=== PATIENT | female | born 1965 | race Caucasian/White ===

== ENCOUNTER 2019-03-15 10:53 | Emergency (ER) | payer OTHER ==
[~2019-03-15] VITALS: Ht 165.1 cm; Wt 78.5 kg
[2019-03-15 11:05] VITALS: Ht 165.1 cm; Wt 78.5 kg
[2019-03-15 12:20] VITALS: BP 141/75
== END 2019-03-15 12:31 | disposition home or self-care (01) ==
LOC: ED 10:53
DX: N39.0 Urinary tract infection, site not specified (principal); E11.9 Type 2 diabetes mellitus without complications; E78.00 Pure hypercholesterolemia, unspecified
CPT/HCPCS: J0696

== ENCOUNTER 2020-07-23 03:37 | Inpatient (IN) | payer OTHER ==
[~2020-07-23] VITALS: Ht 165.1 cm; Wt 91.2 kg
[2020-07-23 04:58] LABS: BASOPHIL % 0.9 % (0.2-1.3); PLATELET COUNT 209 x10^3mcL (179-408); RED CELL DISTRIBUTION WIDTH 12.6 % (12.3-17.7)
[2020-07-23 05:03] LABS: rbc morphology (normal/abnorm) ABNORMAL (NORMAL)
[2020-07-23 05:40] LABS: ALKALINE PHOSPHATASE 57 U/L (46-116); ALT/SGPT 28 U/L (14-59); AST/SGOT 37 U/L (15-37); CARBON DIOXIDE 15.3 mmol/L (21-32); CHLORIDE SERUM 100 mmol/L (98-107); CREATININE SERUM 2.3 mg/dL (0.6-1.0); GFR1 23 mL/min; MAGNESIUM 1.8 mg/dL (1.8-2.4); POTASSIUM SERUM 4.6 mmol/L (3.5-5.1); SODIUM SERUM 136 mmol/L (136-145); TOTAL PROTEIN, SERUM 6.5 g/dL (6.4-8.2)
[2020-07-23 05:41] LABS: ALBUMIN 2.3 g/dL (3.4-5.0)
[2020-07-23 05:44] LABS: CK-MB 4.3 ng/mL (0-3.6)
[2020-07-23 05:54] LABS: GLUCOSE SERUM 486 mg/dL (74-106)
[2020-07-23 07:48] VITALS: Ht 165.1 cm; Wt 91.2 kg
[2020-07-23 15:25] LABS: UA SPECIFIC GRAVITY 1.015 (1.005-1.035); microscopic required? YES; urine erythrocyte 3+ (NEGATIVE)
[2020-07-23 16:53] LABS: BASOPHIL % 0.2 % (0.2-1.3); PLATELET COUNT 241 x10^3mcL (179-408); RED CELL DISTRIBUTION WIDTH 13.1 % (12.3-17.7)
[2020-07-23 17:45] LABS: rbc morphology (normal/abnorm) NORMAL (NORMAL)
[2020-07-24 04:04] LABS: RED CELL DISTRIBUTION WIDTH 12.7 % (12.3-17.7)
[2020-07-24 04:06] LABS: BASOPHIL % 0.2 % (0.2-1.3); PLATELET COUNT 287 x10^3mcL (179-408)
[2020-07-24 04:07] LABS: rbc morphology (normal/abnorm) NORMAL (NORMAL)
[2020-07-24 04:42] LABS: ALBUMIN 2.7 g/dL (3.4-5.0); BILIRUBIN TOTAL 0.62 mg/dL (0.20-1.00); CALCIUM 9.3 mg/dL (8.5-10.1); CARBON DIOXIDE 21.6 mmol/L (21-32); CHOLESTEROL/HDL RATIO 7.8; CREATININE SERUM 1.8 mg/dL (0.6-1.0); MAGNESIUM 1.5 mg/dL (1.8-2.4); POTASSIUM SERUM 3.2 mmol/L (3.5-5.1); TOTAL PROTEIN, SERUM 6.9 g/dL (6.4-8.2)
[2020-07-25 08:41] LABS: BASOPHIL % 0.5 % (0.2-1.3); PLATELET COUNT 271 x10^3mcL (179-408); RED CELL DISTRIBUTION WIDTH 12.8 % (12.3-17.7)
[2020-07-25 09:35] LABS: BILIRUBIN TOTAL 0.7 mg/dL (0.20-1.00); CALCIUM 8.7 mg/dL (8.5-10.1); CARBON DIOXIDE 26.8 mmol/L (21-32); CREATININE SERUM 1.6 mg/dL (0.6-1.0); MAGNESIUM 1.5 mg/dL (1.8-2.4); POTASSIUM SERUM 3.5 mmol/L (3.5-5.1); TOTAL PROTEIN, SERUM 6.3 g/dL (6.4-8.2)
[2020-07-25 10:00] LABS: ALBUMIN 2.1 g/dL (3.4-5.0)
[2020-07-25 15:18] LABS: rbc morphology (normal/abnorm) NORMAL (NORMAL)
[2020-07-25 23:22] VITALS: BP 150/63
[2020-07-26 05:40] VITALS: BP 135/84
[2020-07-26 09:41] VITALS: BP 137/61
[2020-07-26 12:59] VITALS: BP 128/50
[2020-07-26 13:12] LABS: BILIRUBIN TOTAL 0.68 mg/dL (0.20-1.00); CALCIUM 8.5 mg/dL (8.5-10.1); CREATININE SERUM 1.2 mg/dL (0.6-1.0); MAGNESIUM 1.5 mg/dL (1.8-2.4); POTASSIUM SERUM 3.2 mmol/L (3.5-5.1)
[2020-07-26 13:15] LABS: ALBUMIN 1.9 g/dL (3.4-5.0); TOTAL PROTEIN, SERUM 6.1 g/dL (6.4-8.2)
[2020-07-26 13:22] LABS: BASOPHIL % 0.4 % (0.2-1.3); PLATELET COUNT 236 x10^3mcL (179-408); RED CELL DISTRIBUTION WIDTH 12.5 % (12.3-17.7)
[2020-07-26 14:25] LABS: rbc morphology (normal/abnorm) NORMAL (NORMAL)
[2020-07-26 17:30] VITALS: BP 164/68
[2020-07-26 22:32] VITALS: BP 151/64
[2020-07-27 04:24] LABS: BILIRUBIN TOTAL 0.55 mg/dL (0.20-1.00); CALCIUM 8.3 mg/dL (8.5-10.1); CREATININE SERUM 1.2 mg/dL (0.6-1.0); MAGNESIUM 1.7 mg/dL (1.8-2.4)
[2020-07-27 04:31] LABS: ALBUMIN 1.8 g/dL (3.4-5.0); TOTAL PROTEIN, SERUM 5.9 g/dL (6.4-8.2)
[2020-07-27 04:32] LABS: POTASSIUM SERUM 2.8 mmol/L (3.5-5.1)
[2020-07-27 05:03] VITALS: BP 149/67
[2020-07-27 08:57] VITALS: BP 139/56
[2020-07-27 10:59] LABS: BASOPHIL % 0.9 % (0.2-1.3); PLATELET COUNT 251 x10^3mcL (179-408); RED CELL DISTRIBUTION WIDTH 12.6 % (12.3-17.7)
[2020-07-27 11:48] LABS: rbc morphology (normal/abnorm) NORMAL (NORMAL)
[2020-07-27 13:16] VITALS: BP 142/64
[2020-07-27 17:02] VITALS: BP 138/54
[2020-07-27 21:28] VITALS: BP 148/63
[2020-07-28 05:32] VITALS: BP 137/64
[2020-07-28 08:39] LABS: BASOPHIL % 0.8 % (0.2-1.3); PLATELET COUNT 209 x10^3mcL (179-408); RED CELL DISTRIBUTION WIDTH 12.6 % (12.3-17.7)
[2020-07-28 08:44] VITALS: BP 151/63
[2020-07-28 09:21] VITALS: BP 150/63
[2020-07-28 09:39] LABS: rbc morphology (normal/abnorm) NORMAL (NORMAL)
[2020-07-28 09:50] LABS: ALBUMIN 1.7 g/dL (3.4-5.0); BILIRUBIN TOTAL 0.66 mg/dL (0.20-1.00); CALCIUM 8.2 mg/dL (8.5-10.1); CARBON DIOXIDE 26.1 mmol/L (21-32); CREATININE SERUM 1.3 mg/dL (0.6-1.0); MAGNESIUM 1.5 mg/dL (1.8-2.4)
[2020-07-28 12:20] VITALS: BP 153/67
[2020-07-28 16:07] VITALS: BP 106/67
[2020-07-28 21:29] VITALS: BP 129/50
[2020-07-29 06:21] VITALS: BP 141/63
[2020-07-29 08:55] VITALS: BP 125/55
[2020-07-29 11:51] VITALS: BP 119/51
[2020-07-29 15:08] LABS: BASOPHIL % 0.7 % (0.2-1.3); PLATELET COUNT 191 x10^3mcL (179-408); RED CELL DISTRIBUTION WIDTH 12.8 % (12.3-17.7)
[2020-07-29 15:23] LABS: rbc morphology (normal/abnorm) NORMAL (NORMAL)
[2020-07-29 16:08] LABS: CALCIUM 8.1 mg/dL (8.5-10.1); CARBON DIOXIDE 26.5 mmol/L (21-32); CREATININE SERUM 1.3 mg/dL (0.6-1.0); POTASSIUM SERUM 3.1 mmol/L (3.5-5.1)
[2020-07-29 17:05] VITALS: BP 132/47
[2020-07-29 21:44] VITALS: BP 134/59
== END 2020-07-30 05:50 | DRG 137 ==
LOC: ED 03:37 → EDBEDREQSVC 08:31 → EDBEDREQ 08:31 → DU 08:33 → IC 08:33 → DU 07-25 21:51
PROVIDERS: Emergency Medicine; ADMIT Hospitalist; ATTEND Internal Medicine
PROC: 30233N1 Transfusion of Nonautologous Red Blood Cells into Peripheral Vein, Percutaneous Approach (ICD-10-PCS; principal; 2020-07-23)
PROC: 5A2204Z Restoration of Cardiac Rhythm, Single (ICD-10-PCS; 2020-07-23)
PROC: 5A12012 Performance of Cardiac Output, Single, Manual (ICD-10-PCS; 2020-07-30)
PROC: 0BH17EZ Insertion of Endotracheal Airway into Trachea, Via Natural or Artificial Opening (ICD-10-PCS; 2020-07-30)
DX: U07.1 COVID-19 (principal); I21.4 Non-ST elevation (NSTEMI) myocardial infarction; N17.9 Acute kidney failure, unspecified; E11.22 Type 2 diabetes mellitus with diabetic chronic kidney disease; E87.2 Acidosis; J12.89 Other viral pneumonia; E11.65 Type 2 diabetes mellitus with hyperglycemia; I48.91 Unspecified atrial fibrillation; D64.9 Anemia, unspecified; Z90.49 Acquired absence of other specified parts of digestive tract; I12.9 Hypertensive chronic kidney disease with stage 1 through stage 4 chronic kidney disease, or unspecified chronic kidney disease; N18.9 Chronic kidney disease, unspecified; E78.5 Hyperlipidemia, unspecified
CPT/HCPCS: 82962; 83880; G0378; J0282; J0360; J0610; J0696; J1642; J1644; J1815; J2250; J2270; J2405; J3475; J3480; J3490; J7030; J7042; J7050; J7060; P9016; U0003